=== PATIENT | male | born 1940 | race Caucasian/White ===

== ENCOUNTER → 2016-08-14 | Outpatient (CLI) | payer MEDICARE, OTHER | END | disposition home or self-care (01) | LOC: CDC 14:12 | DX: R94.31 Abnormal electrocardiogram [ECG] [EKG] (principal) | CPT/HCPCS: 93000 ==

== ENCOUNTER 2016-10-18 16:15 | Inpatient (IN) | payer OTHER ==
[~2016-10-18] VITALS: Ht 182.9 cm; Wt 89.7 kg
[2016-10-18 17:45] LABS: HEMATOCRIT 39.1 % (38.0-50.0); MCH 29.6 PG (29.0-34.0); MCHC 34.8 G/DL (30.0-36.0); MCV 85.2 FL (86-99); MEAN PLAT.VOLUME 10.3 uM^3 (9.0-12.4); PLATELET COUNT 201 K/uL (156-360); RBC DIS.WIDTH-CV 12.9 % (11.8-14.6); RBC DIS.WIDTH-SD 39.8 % (39-53); RED BLOOD COUNT 4.59 M/uL (4.00-5.50); WHITE BLOOD COUNT 6.8 K/uL (4.1-10.2)
[2016-10-18 17:53] LABS: CHLORIDE 102 mEq/L (99-109); POTASSIUM 4.2 mEq/L (3.7-5.4); SODIUM 133 mEq/L (136-147)
[2016-10-18 17:56] LABS: GLUCOSE 161 mg/dL (70-99)
[2016-10-18 17:57] LABS: ANION GAP 9 MEQ/L (2-14); TOTAL BILIRUBIN 0.3 mg/dL (0.0-1.0)
[2016-10-18 17:59] LABS: ALKALINE PHOSPHATASE 64 IU/L (3-129); GFR ESTIMATE (CALCULATED) 52 mL/min/
[2016-10-18 18:00] LABS: UREA NITROGEN (BUN) 20 mg/dL (9-23)
[2016-10-18 18:37] LABS: C-REACTIVE PROTEIN 20.7 MG/L (0-10)
[2016-10-18] MEDS ORDERED: BACTRIM,SEPT1 TABLET PO (20:41)
[2016-10-18] MEDS ORDERED: ALTACE10 MG PO (20:42)
[2016-10-18] MEDS ORDERED: LANTUS 3 M100 UNITS1 SC (20:42)
[2016-10-18] MEDS ORDERED: FLOMAX0.4 MG PO (20:42)
[2016-10-18] MEDS ORDERED: CILOSTAZOL100 MG PO (20:42)
[2016-10-18] MEDS ORDERED: LO-DOSE ASPIRIN81 M1 PO (20:43)
[2016-10-18] MEDS ORDERED: METFORMIN HCL500 MG PO (20:43)
[2016-10-18] MEDS ORDERED: AMARYL4 MG PO (20:43)
[2016-10-18] MEDS ORDERED: METOPROLOL SUCC50 MG PO (20:43)
[2016-10-18] MEDS ORDERED: ATORVASTATIN CA10 MG PO (20:43)
[2016-10-18 22:43] VITALS: BP 138/97
[2016-10-18 22:47] LABS: POINT-OF-CARE METER ID UU14208750
[2016-10-19 04:51] VITALS: BP 173/84
[2016-10-19 06:24] LABS: EOSINOPHIL (%) 2.5 % (0-5); EOSINOPHIL COUNT 0.2 K/uL (0-0.3); HEMATOCRIT 37.4 % (38.0-50.0); IMMATURE GRANULOCYTE (%) 0.2 % (0.0-0.7); INSTRUMENT ABS NEUTROPHIL CT 3.3 K/uL; LYMPHOCYTE COUNT 1.4 K/uL (1.0-2.8); MCH 30.3 PG (29.0-34.0); MCHC 35.3 G/DL (30.0-36.0); MCV 85.8 FL (86-99); MEAN PLAT.VOLUME 10.1 uM^3 (9.0-12.4); MONOCYTE (%) 16.4 % (3-12); NEUTROPHIL (%) 56.2 % (45-76); NEUTROPHIL COUNT 3.3 K/uL (1.8-6.4); PLATELET COUNT 188 K/uL (156-360); RBC DIS.WIDTH-CV 13.1 % (11.8-14.6); RBC DIS.WIDTH-SD 41.1 % (39-53); RED BLOOD COUNT 4.36 M/uL (4.00-5.50); WHITE BLOOD COUNT 5.9 K/uL (4.1-10.2)
[2016-10-19 06:28] LABS: POINT-OF-CARE METER ID UU14162508
[2016-10-19 06:53] LABS: ANION GAP 9 MEQ/L (2-14); CHLORIDE 106 MEQ/L (99-109); GFR ESTIMATE (CALCULATED) > 59 mL/min/; POTASSIUM 4.2 MEQ/L (3.7-5.4); SAMPLE HEMOLYSIS CHECK 0; SAMPLE ICTERIC CHECK 0; SAMPLE LIPEMIA CHECK 0; SODIUM 139 MEQ/L (136-147); UREA NITROGEN (BUN) 17 mg/dL (9-23)
[2016-10-19 06:54] LABS: GLUCOSE 87 mg/dL (70-99)
[2016-10-19 07:32] VITALS: BP 144/76
[2016-10-19 11:23] VITALS: BP 161/81
[2016-10-19 12:34] LABS: POINT-OF-CARE METER ID UU14208750
[2016-10-19 15:03] VITALS: BP 145/80
[2016-10-19 17:25] LABS: POINT-OF-CARE METER ID UU14208750
[2016-10-19 20:12] VITALS: BP 146/80; BP 1465/80
[2016-10-19 21:47] LABS: POINT-OF-CARE METER ID UU14162508
[2016-10-20] VITALS (7 sets, daily range): BP systolic 120–150; BP diastolic 65–84
[2016-10-20 06:47] LABS: POINT-OF-CARE METER ID UU14208750
[2016-10-20 08:01] LABS: EOSINOPHIL (%) 3.1 % (0-5); EOSINOPHIL COUNT 0.2 K/uL (0-0.3); HEMATOCRIT 39.9 % (38.0-50.0); IMMATURE GRANULOCYTE (%) 0.2 % (0.0-0.7); LYMPHOCYTE COUNT 1.6 K/uL (1.0-2.8); MCHC 34.8 G/DL (30.0-36.0); MEAN PLAT.VOLUME 10.4 uM^3 (9.0-12.4); MONOCYTE (%) 12.2 % (3-12); MONOCYTE COUNT 0.7 K/uL (0-0.8); NEUTROPHIL (%) 54.1 % (45-76); PLATELET COUNT 200 K/uL (156-360); RBC DIS.WIDTH-CV 13.2 % (11.8-14.6); RBC DIS.WIDTH-SD 41.1 % (39-53); RED BLOOD COUNT 4.64 M/uL (4.00-5.50); WHITE BLOOD COUNT 5.5 K/uL (4.1-10.2)
[2016-10-20 08:32] LABS: ANION GAP 10 MEQ/L (2-14); CHLORIDE 105 MEQ/L (99-109); GFR ESTIMATE (CALCULATED) > 59 mL/min/; GLUCOSE 84 mg/dL (70-99); POTASSIUM 4.3 MEQ/L (3.7-5.4); SAMPLE HEMOLYSIS CHECK 0; SAMPLE ICTERIC CHECK 0; SAMPLE LIPEMIA CHECK 0; SODIUM 138 MEQ/L (136-147); UREA NITROGEN (BUN) 19 mg/dL (9-23)
[2016-10-20 12:14] LABS: POINT-OF-CARE METER ID UU14208750
[2016-10-20 17:15] LABS: POINT-OF-CARE METER ID UU14208750
[2016-10-20 21:47] LABS: POINT-OF-CARE METER ID UU14208750
[2016-10-21 04:00] VITALS: BP 135/78
[2016-10-21 06:31] LABS: POINT-OF-CARE METER ID UU14208750
[2016-10-21 07:43] LABS: EOSINOPHIL (%) 3.9 % (0-5); EOSINOPHIL COUNT 0.3 K/uL (0-0.3); HEMATOCRIT 40.9 % (38.0-50.0); IMMATURE GRANULOCYTE (%) 0.3 % (0.0-0.7); INSTRUMENT ABS NEUTROPHIL CT 3.7 K/uL; LYMPHOCYTE COUNT 1.8 K/uL (1.0-2.8); MCH 28.8 PG (29.0-34.0); MCHC 33.7 G/DL (30.0-36.0); MCV 85.4 FL (86-99); MEAN PLAT.VOLUME 10.2 uM^3 (9.0-12.4); MONOCYTE (%) 10.3 % (3-12); MONOCYTE COUNT 0.7 K/uL (0-0.8); NEUTROPHIL (%) 57.7 % (45-76); NEUTROPHIL COUNT 3.7 K/uL (1.8-6.4); PLATELET COUNT 223 K/uL (156-360); RBC DIS.WIDTH-SD 40.6 % (39-53); RED BLOOD COUNT 4.79 M/uL (4.00-5.50); WHITE BLOOD COUNT 6.5 K/uL (4.1-10.2)
[2016-10-21 08:00] LABS: ANION GAP 9 MEQ/L (2-14); CHLORIDE 103 MEQ/L (99-109); GFR ESTIMATE (CALCULATED) > 59 mL/min/; POTASSIUM 4.6 MEQ/L (3.7-5.4); SAMPLE HEMOLYSIS CHECK 0; SAMPLE ICTERIC CHECK 0; SAMPLE LIPEMIA CHECK 0; SODIUM 135 MEQ/L (136-147); UREA NITROGEN (BUN) 23 mg/dL (9-23)
[2016-10-21 08:03] LABS: GLUCOSE 128 mg/dL (70-99)
[2016-10-21 08:25] VITALS: BP 130/74
[2016-10-21] MEDS ORDERED: CIPROFLOXACIN500 M1 PO (11:16)
== END 2016-10-21 12:08 | disposition home or self-care (01) | DRG 638 ==
LOC: EME 16:15 → EDOF 20:20 → CANRESERV 20:26 → ENRESERV 20:26 → CANRESERV 20:28 → ENRESERV 20:52 → 2EAST 22:05
PROVIDERS: Hospitalist; Internal Medicine; Physician Assistant
DX: E11.628 Type 2 diabetes mellitus with other skin complications (principal); E11.69 Type 2 diabetes mellitus with other specified complication; M86.9 Osteomyelitis, unspecified; L03.032 Cellulitis of left toe; S92.422A Displaced fracture of distal phalanx of left great toe, initial encounter for closed fracture; S92.532A Displaced fracture of distal phalanx of left lesser toe(s), initial encounter for closed fracture; W20.8XXA Other cause of strike by thrown, projected or falling object, initial encounter; E11.51 Type 2 diabetes mellitus with diabetic peripheral angiopathy without gangrene; I10 Essential (primary) hypertension; I25.10 Atherosclerotic heart disease of native coronary artery without angina pectoris; E78.00 Pure hypercholesterolemia, unspecified; E78.5 Hyperlipidemia, unspecified; Z95.1 Presence of aortocoronary bypass graft; N40.0 Benign prostatic hyperplasia without lower urinary tract symptoms; F17.290 Nicotine dependence, other tobacco product, uncomplicated; H91.90 Unspecified hearing loss, unspecified ear
CPT/HCPCS: 73660; 80048; 80053; 82948; 83605; 85025; 85027; 86140; 87040; 93926; 93971; 99281; 99285; J0692; J1644; J1815; J3370; J7030; J7050; S0039